=== PATIENT | female | born 1945 | race Caucasian/White ===

== ENCOUNTER 2017-08-28 15:41 | Inpatient (IN) | payer OTHER ==
[~2017-08-28] VITALS: Ht 154.9 cm; Wt 57.8 kg
[2017-08-28 16:30] LABS: HEMATOCRIT 42.7 % (36.0-46.0); MCH 28.6 PG (29.0-34.0); MCHC 32.8 G/DL (30.0-36.0); MCV 87.1 FL (83-99); MEAN PLAT.VOLUME 8.8 uM^3 (9.5-12.4); PLATELET COUNT 461 K/uL (156-360); RBC DIS.WIDTH-CV 13.2 % (11.8-14.6); RBC DIS.WIDTH-SD 41.1 % (39-53); WHITE BLOOD COUNT 10.9 K/uL (4.1-10.2)
[2017-08-28 16:39] LABS: CHLORIDE 103 mEq/L (99-109); POTASSIUM 3.7 mEq/L (3.7-5.4); SODIUM 140 mEq/L (136-147)
[2017-08-28 16:41] LABS: GLUCOSE 90 mg/dL (70-99)
[2017-08-28 16:42] LABS: ANION GAP 11 MEQ/L (2-14)
[2017-08-28 16:45] LABS: UREA NITROGEN (BUN) 12 mg/dL (9-23)
[2017-08-28 16:49] LABS: GFR ESTIMATE (CALCULATED) > 59 mL/min/
[2017-08-28 16:50] LABS: TROP-I INTERPRETATION NEGATIVE; TROPONIN-I < 0.01 ng/mL (0.0-0.30)
[2017-08-28] MEDS ORDERED: ZOFRAN ODT4 MG PO (20:32)
[2017-08-28] MEDS ORDERED: PERCOCET 5/31 TABLET PO (20:32)
[2017-08-28] MEDS ORDERED: ZITHROMAX Z-PA250 MG PO (20:37)
[2017-08-28] MEDS ORDERED: IPRATROPIUM BRO30 ML BOTH NARES (21:18)
[2017-08-28] MEDS ORDERED: MUCINEX600 MG PO (21:19)
[2017-08-28] MEDS ORDERED: BACLOFEN10 MG PO (21:19)
[2017-08-28] MEDS ORDERED: NORVASC5 MG PO (21:20)
[2017-08-28] MEDS ORDERED: PANTOPRAZOLE SO40 MG PO (21:20)
[2017-08-28] MEDS ORDERED: SERTRALINE HCL100 MG PO (21:21)
[2017-08-28] MEDS ORDERED: PROVENTIL HFA6.7 GM IH (21:22)
[2017-08-28] MEDS ORDERED: TYLENOL EXTRA500 MG PO (21:23)
[2017-08-28] MEDS ORDERED: ALKA-SELTZER P1 EAC7 PO (21:24)
[2017-08-28] MEDS ORDERED: BENADRYL ALLERG25 MG PO (21:25)
[2017-08-28] MEDS ORDERED: ESSENTIAL WOMA1 EACH PO (21:26)
[2017-08-29] VITALS (7 sets, daily range): BP systolic 115–155; BP diastolic 54–97
[2017-08-29 05:49] LABS: HEMATOCRIT 38.5 % (36.0-46.0); MCH 28.7 PG (29.0-34.0); MCHC 31.9 G/DL (30.0-36.0); MCV 89.7 FL (83-99); MEAN PLAT.VOLUME 9.1 uM^3 (9.5-12.4); PLATELET COUNT 380 K/uL (156-360); RBC DIS.WIDTH-CV 13.2 % (11.8-14.6); RBC DIS.WIDTH-SD 43.1 % (39-53); RED BLOOD COUNT 4.29 M/uL (3.80-5.20); WHITE BLOOD COUNT 9.1 K/uL (4.1-10.2)
[2017-08-29 06:13] LABS: ANION GAP 8 MEQ/L (2-14); CHLORIDE 102 MEQ/L (99-109); GFR ESTIMATE (CALCULATED) 52 mL/min/; GLUCOSE 122 mg/dL (70-99); POTASSIUM 4.4 MEQ/L (3.7-5.4); SAMPLE HEMOLYSIS CHECK 0; SAMPLE ICTERIC CHECK 0; SAMPLE LIPEMIA CHECK 0; SODIUM 139 MEQ/L (136-147); UREA NITROGEN (BUN) 18 mg/dL (9-23)
[2017-08-29 06:34] LABS: POINT-OF-CARE METER ID UU14162508
[2017-08-29 08:50] LABS: INTERNAL CONTROL VALID? YES
[2017-08-29] MEDS ORDERED: BREO ELLIPTA 21 EACH IH (10:54)
[2017-08-29] MEDS ORDERED: DUONEB 2.5-0.5 M3 ML AEROSOL (10:55)
[2017-08-29 11:33] LABS: POINT-OF-CARE METER ID UU14162508
[2017-08-29 16:32] LABS: POINT-OF-CARE METER ID UU14162508
[2017-08-29 21:36] LABS: POINT-OF-CARE METER ID UU14162508
[2017-08-30 03:45] VITALS: BP 125/65
[2017-08-30 06:33] LABS: POINT-OF-CARE METER ID UU14208750
[2017-08-30 06:39] LABS: HEMATOCRIT 37.9 % (36.0-46.0); MCHC 32.5 G/DL (30.0-36.0); MCV 86.3 FL (83-99); MEAN PLAT.VOLUME 9.6 uM^3 (9.5-12.4); PLATELET COUNT 405 K/uL (156-360); RBC DIS.WIDTH-CV 13.1 % (11.8-14.6); RBC DIS.WIDTH-SD 40.9 % (39-53); RED BLOOD COUNT 4.39 M/uL (3.80-5.20); WHITE BLOOD COUNT 13.5 K/uL (4.1-10.2)
[2017-08-30 07:08] LABS: ANION GAP 11 MEQ/L (2-14); CHLORIDE 100 MEQ/L (99-109); GFR ESTIMATE (CALCULATED) > 59 mL/min/; POTASSIUM 4.2 MEQ/L (3.7-5.4); SAMPLE HEMOLYSIS CHECK 0; SAMPLE ICTERIC CHECK 0; SAMPLE LIPEMIA CHECK 0; SODIUM 138 MEQ/L (136-147); UREA NITROGEN (BUN) 16 mg/dL (9-23)
[2017-08-30 07:12] LABS: GLUCOSE 189 mg/dL (70-99)
[2017-08-30 08:44] VITALS: BP 154/71
[2017-08-30 12:15] LABS: POINT-OF-CARE METER ID UU14208750
[2017-08-30 12:26] VITALS: BP 167/72
[2017-08-30 15:20] VITALS: BP 135/65
[2017-08-30 16:50] LABS: POINT-OF-CARE METER ID UU14162508
[2017-08-30 19:20] VITALS: BP 159/70
[2017-08-30 21:24] LABS: POINT-OF-CARE METER ID UU14162508
[2017-08-31 00:12] VITALS: BP 125/74
[2017-08-31 03:32] VITALS: BP 148/68
[2017-08-31 06:43] LABS: POINT-OF-CARE METER ID UU14208750
[2017-08-31 07:28] VITALS: BP 168/72
[2017-08-31 11:35] LABS: POINT-OF-CARE METER ID UU14162508; POINT-OF-CARE USER ID PUTDRM
[2017-08-31 15:35] VITALS: BP 147/72
[2017-08-31 17:01] LABS: POINT-OF-CARE METER ID UU14208750; POINT-OF-CARE USER ID PUTDRM
[2017-08-31 21:41] LABS: POINT-OF-CARE METER ID UU14208750
[2017-09-01 01:12] VITALS: BP 161/74
[2017-09-01 06:22] LABS: HEMATOCRIT 36.9 % (36.0-46.0); MCH 28.6 PG (29.0-34.0); MCHC 32.2 G/DL (30.0-36.0); MCV 88.7 FL (83-99); MEAN PLAT.VOLUME 9.6 uM^3 (9.5-12.4); PLATELET COUNT 399 K/uL (156-360); RBC DIS.WIDTH-CV 13.9 % (11.8-14.6); RBC DIS.WIDTH-SD 45.4 % (39-53); RED BLOOD COUNT 4.16 M/uL (3.80-5.20); WHITE BLOOD COUNT 11.5 K/uL (4.1-10.2)
[2017-09-01 06:31] LABS: POINT-OF-CARE METER ID UU14162508
[2017-09-01 07:48] VITALS: BP 126/74
[2017-09-01 11:32] LABS: POINT-OF-CARE METER ID UU14162508
[2017-09-01 11:41] VITALS: BP 150/86
[2017-09-01 17:34] VITALS: BP 128/60
[2017-09-01 17:42] LABS: POINT-OF-CARE METER ID UU14162508
[2017-09-01 22:05] LABS: POINT-OF-CARE METER ID UU14162508
[2017-09-01 23:39] VITALS: BP 169/72
[2017-09-02 03:43] VITALS: BP 181/76
[2017-09-02 06:46] LABS: POINT-OF-CARE METER ID UU14162508
[2017-09-02 07:15] VITALS: BP 158/85
[2017-09-02 11:05] VITALS: BP 182/91
[2017-09-02 12:02] LABS: POINT-OF-CARE METER ID UU14162508
[2017-09-02 16:46] LABS: POINT-OF-CARE METER ID UU14162508
[2017-09-02 16:54] VITALS: BP 140/65
[2017-09-02 19:51] VITALS: BP 168/78
[2017-09-02 21:52] LABS: POINT-OF-CARE METER ID UU14162508
[2017-09-02 23:32] VITALS: BP 142/83
[2017-09-03 06:32] LABS: POINT-OF-CARE METER ID UU14208750
[2017-09-03 09:43] VITALS: BP 142/67
[2017-09-03 09:58] LABS: HEMATOCRIT 40.6 % (36.0-46.0); MCV 90.4 FL (83-99); MEAN PLAT.VOLUME 9.6 uM^3 (9.5-12.4); PLATELET COUNT 449 K/uL (156-360); RBC DIS.WIDTH-CV 14.1 % (11.8-14.6); RBC DIS.WIDTH-SD 46.4 % (39-53); RED BLOOD COUNT 4.49 M/uL (3.80-5.20); WHITE BLOOD COUNT 13.6 K/uL (4.1-10.2)
[2017-09-03 11:53] LABS: POINT-OF-CARE METER ID UU14162508
[2017-09-03 17:04] LABS: POINT-OF-CARE METER ID UU14314084
[2017-09-03 17:16] VITALS: BP 132/60
[2017-09-03 21:22] LABS: POINT-OF-CARE METER ID UU14208750
[2017-09-03 23:39] VITALS: BP 138/70
[2017-09-04 06:44] LABS: POINT-OF-CARE METER ID UU14314084
[2017-09-04 06:54] LABS: HEMATOCRIT 37.6 % (36.0-46.0); MCH 28.3 PG (29.0-34.0); MCHC 31.4 G/DL (30.0-36.0); MCV 90.2 FL (83-99); MEAN PLAT.VOLUME 9.4 uM^3 (9.5-12.4); PLATELET COUNT 444 K/uL (156-360); RBC DIS.WIDTH-CV 14.3 % (11.8-14.6); RBC DIS.WIDTH-SD 46.7 % (39-53); RED BLOOD COUNT 4.17 M/uL (3.80-5.20); WHITE BLOOD COUNT 13.6 K/uL (4.1-10.2)
[2017-09-04 07:19] LABS: ANION GAP 7 MEQ/L (2-14); CHLORIDE 101 MEQ/L (99-109); GFR ESTIMATE (CALCULATED) > 59 mL/min/; GLUCOSE 92 mg/dL (70-99); POTASSIUM 4.1 MEQ/L (3.7-5.4); SAMPLE HEMOLYSIS CHECK 0; SAMPLE ICTERIC CHECK 0; SAMPLE LIPEMIA CHECK 0; SODIUM 139 MEQ/L (136-147); UREA NITROGEN (BUN) 20 mg/dL (9-23)
[2017-09-04 07:45] VITALS: BP 142/76
[2017-09-04 11:59] LABS: POINT-OF-CARE METER ID UU14314084
[2017-09-04 16:09] VITALS: BP 177/84
[2017-09-04 16:51] LABS: POINT-OF-CARE METER ID UU14208750
[2017-09-04 21:50] LABS: POINT-OF-CARE METER ID UU14208750
[2017-09-04 23:27] VITALS: BP 146/67
[2017-09-05 06:32] LABS: POINT-OF-CARE METER ID UU14208750
[2017-09-05 06:56] LABS: HEMATOCRIT 37.9 % (36.0-46.0); MCH 29.3 PG (29.0-34.0); MCHC 32.2 G/DL (30.0-36.0); MCV 91.1 FL (83-99); MEAN PLAT.VOLUME 9.5 uM^3 (9.5-12.4); PLATELET COUNT 437 K/uL (156-360); RBC DIS.WIDTH-CV 14.5 % (11.8-14.6); RBC DIS.WIDTH-SD 48.1 % (39-53); RED BLOOD COUNT 4.16 M/uL (3.80-5.20); WHITE BLOOD COUNT 14.6 K/uL (4.1-10.2)
[2017-09-05 07:40] VITALS: BP 155/64
[2017-09-05 09:27] LABS: ADD MIUA? NO; BILIRUBIN NEGATIVE; BLOOD NEGATIVE; COLOR YELLOW ((YELLOW)); GLUCOSE (STRIP) NEGATIVE; KETONES NEGATIVE; LEUKOCYTES NEGATIVE; NITRITE NEGATIVE; PROTEIN (STRIP) 30; SPECIFIC GRAVITY 1.019 (1.000-1.030); UCUL ADDED? NO; UROBILINOGEN 0.2 MG/DL (0.2-1.0)
[2017-09-05 12:20] LABS: POINT-OF-CARE METER ID UU14208750
[2017-09-05 15:25] VITALS: BP 166/74
[2017-09-05 16:12] LABS: POINT-OF-CARE METER ID UU14208750
[2017-09-05 21:49] LABS: POINT-OF-CARE METER ID UU14208750
[2017-09-05 23:31] VITALS: BP 144/70
[2017-09-06 06:42] LABS: POINT-OF-CARE METER ID UU14314084
[2017-09-06 07:09] LABS: BASOPHIL COUNT 0.1 K/uL (0-0.1); EOSINOPHIL (%) 0.3 % (0-5); HEMATOCRIT 39.1 % (36.0-46.0); IMMATURE GRANULOCYTE (%) 3.2 % (0.0-0.7); IMMATURE GRANULOCYTE COUNT 0.5 K/uL; INSTRUMENT ABS NEUTROPHIL CT 9.7 K/uL; MCH 28.7 PG (29.0-34.0); MCV 89.9 FL (83-99); MEAN PLAT.VOLUME 9.4 uM^3 (9.5-12.4); MONOCYTE (%) 9.3 % (3-12); MONOCYTE COUNT 1.4 K/uL (0-0.8); NEUTROPHIL (%) 66.4 % (45-76); NEUTROPHIL COUNT 9.7 K/uL (1.8-6.4); PLATELET COUNT 470 K/uL (156-360); RBC DIS.WIDTH-CV 14.2 % (11.8-14.6); RBC DIS.WIDTH-SD 46.8 % (39-53); RED BLOOD COUNT 4.35 M/uL (3.80-5.20); WHITE BLOOD COUNT 14.6 K/uL (4.1-10.2)
[2017-09-06 07:25] VITALS: BP 142/86
[2017-09-06 07:32] LABS: ANION GAP 9 MEQ/L (2-14); CHLORIDE 99 MEQ/L (99-109); GFR ESTIMATE (CALCULATED) > 59 mL/min/; GLUCOSE 107 mg/dL (70-99); MAGNESIUM 2.3 mg/dl (1.3-2.7); POTASSIUM 4.3 MEQ/L (3.7-5.4); SAMPLE HEMOLYSIS CHECK 0; SAMPLE ICTERIC CHECK 0; SAMPLE LIPEMIA CHECK 0; SODIUM 137 MEQ/L (136-147); UREA NITROGEN (BUN) 20 mg/dL (9-23)
[2017-09-06] MEDS ORDERED: BACLOFEN10 MG PO (11:31)
[2017-09-06] MEDS ORDERED: PROVENTIL HFA6.7 GM IH (11:31)
[2017-09-06] MEDS ORDERED: PANTOPRAZOLE SO40 MG PO (11:31)
[2017-09-06] MEDS ORDERED: DUONEB 2.5-0.5 M3 ML AEROSOL (11:31)
[2017-09-06] MEDS ORDERED: OXAYDO5 MG PO (11:31)
[2017-09-06] MEDS ORDERED: SPIRIVA18 MCG IH (11:31)
[2017-09-06] MEDS ORDERED: PREDNISONE20 MG PO (11:31)
[2017-09-06] MEDS ORDERED: ALPRAZOLAM0.5 MG PO (11:31)
[2017-09-06] MEDS ORDERED: NORVASC5 MG PO (11:31)
[2017-09-06] MEDS ORDERED: SERTRALINE HCL100 MG PO (11:31)
[2017-09-06] MEDS ORDERED: NEBULIZER MC (11:34)
[2017-09-06] MEDS ORDERED: INCRUSE ELLI62.5 MCG IH (11:58)
[2017-09-06 12:35] LABS: POINT-OF-CARE METER ID UU14162508
[2017-09-06 15:42] VITALS: BP 140/73
[2017-09-06 16:48] LABS: POINT-OF-CARE METER ID UU14162508
[2017-09-06 22:00] LABS: POINT-OF-CARE METER ID UU14208750
[2017-09-06 23:12] VITALS: BP 160/79
[2017-09-07 06:39] LABS: POINT-OF-CARE METER ID UU14208750
[2017-09-07 08:04] VITALS: BP 157/74
[2017-09-07 12:30] LABS: POINT-OF-CARE METER ID UU14208750
== END 2017-09-07 14:32 | disposition home health service (06) | DRG 987 ==
LOC: EME 15:41 → 2EAST 23:07 → EDOF 23:07 → ENRESERV 23:08 → 2EAST 08-29 00:22
PROVIDERS: Hospitalist; Internal Medicine; Physician Assistant
DX: J44.0 Chronic obstructive pulmonary disease with (acute) lower respiratory infection (principal); J15.9 Unspecified bacterial pneumonia; T85.44XA Capsular contracture of breast implant, initial encounter; T85.49XA Other mechanical complication of breast prosthesis and implant, initial encounter; T85.43XA Leakage of breast prosthesis and implant, initial encounter; T85.41XA Breakdown (mechanical) of breast prosthesis and implant, initial encounter; J98.11 Atelectasis; T17.590A Other foreign object in bronchus causing asphyxiation, initial encounter; J44.1 Chronic obstructive pulmonary disease with (acute) exacerbation; X58.XXXA Exposure to other specified factors, initial encounter; F41.9 Anxiety disorder, unspecified; I10 Essential (primary) hypertension; K40.90 Unilateral inguinal hernia, without obstruction or gangrene, not specified as recurrent; K58.0 Irritable bowel syndrome with diarrhea; N28.1 Cyst of kidney, acquired; N64.4 Mastodynia; Z99.81 Dependence on supplemental oxygen; Z98.82 Breast implant status; Z90.13 Acquired absence of bilateral breasts and nipples; T38.0X5A Adverse effect of glucocorticoids and synthetic analogues, initial encounter; Z87.891 Personal history of nicotine dependence; Z86.73 Personal history of transient ischemic attack (TIA), and cerebral infarction without residual deficits; Z85.3 Personal history of malignant neoplasm of breast; R91.1 Solitary pulmonary nodule; Z91.19 Patient's noncompliance with other medical treatment and regimen; Z88.5 Allergy status to narcotic agent; Z79.51 Long term (current) use of inhaled steroids; Y92.89 Other specified places as the place of occurrence of the external cause; Y99.8 Other external cause status; Z80.3 Family history of malignant neoplasm of breast; Z80.1 Family history of malignant neoplasm of trachea, bronchus and lung
CPT/HCPCS: 71010; 71020; 71260; 74177; 80048; 81003; 82948; 83735; 84484; 85025; 85027; 85379; 87449; 87493; 88304; 93005; 94010; 94640; 94640 76; 94760; 94799; 99202; 99281; 99284; J0456; J0696; J1170; J1644; J1815; J2250; J2270; J2405; J2765; J2920; J3010; J7512